=== PATIENT | female | born 2000 | race Caucasian/White ===

== ENCOUNTER → 2021-02-09 | Outpatient (CLI) | payer OTHER ==
[~2021-02-09] MED LIST: CYCLOBENZAPRINE5 MG PO
[2021-02-09 10:46] LABS: HEMOGLOBIN 14.7 gm/dl (12.3-15.3); RED BLOOD COUNT 4.92 M/UL (4.00-5.10); WHITE BLOOD COUNT 5.3 K/UL (4.5-11.0)
[2021-02-09 15:48] LABS: BUN/CREATININE RATIO 16 (0-10)
[2021-02-10 08:20] LABS: THYROXINE (T4) 7.3 ug/dL (4.5-12.0)
== END ==
LOC: LAB 09:46
PROVIDERS: Nurse Practitioner Family
DX: Z13.220 Encounter for screening for lipoid disorders (principal); R53.82 Chronic fatigue, unspecified
CPT/HCPCS: 36415; 80053; 80061; 81001; 84436; 84443; 84480; 85025